=== PATIENT | male | born 1990 | race Caucasian/White ===

== ENCOUNTER 2017-06-26 17:13 | Emergency (ER) | payer MEDICAID, OTHER ==
[2017-06-26 17:19] VITALS: BP 138/79; PULSE 73; RESP 16; TEMP 99.3; O2SAT 99
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
== END 2017-06-26 18:40 | disposition home or self-care (01) ==
LOC: H.ER 17:13
DX: S80.00XA Contusion of unspecified knee, initial encounter (principal); V49.40XA Driver injured in collision with unspecified motor vehicles in traffic accident, initial encounter